=== PATIENT | female | born 1985 | race Caucasian/White ===

== ENCOUNTER 2017-09-18 20:41 | Emergency (ER) | payer MEDICAID ==
[2017-09-18 21:49] LABS: BASOPHIL % 0.5 % (0-2); PLATELET COUNT 181 x10^3mcL (130-400)
[2017-09-18 21:53] LABS: CALCIUM 8.8 mg/dL (8.5-10.1); CARBON DIOXIDE 26.3 mmol/L (21-32); CHLORIDE SERUM 105 mmol/L (98-107); CREATININE SERUM 0.6 mg/dL (0.6-1.0); GFR1 > 60 mL/min; GLUCOSE SERUM 94 mg/dL (74-106); POTASSIUM SERUM 3.7 mmol/L (3.5-5.1); SODIUM SERUM 137 mmol/L (136-145)
[2017-09-18 21:58] LABS: ALBUMIN 3.9 g/dL (3.4-5.0); ALKALINE PHOSPHATASE 47 U/L (46-116); ALT/SGPT 19 U/L (14-59); AST/SGOT 16 U/L (15-37); BILIRUBIN TOTAL 0.2 mg/dL (0.20-1.00); TOTAL PROTEIN, SERUM 7.6 g/dL (6.4-8.2)
[2017-09-19 02:30] VITALS: BP 108/63
== END 2017-09-19 02:30 | disposition home or self-care (01) ==
LOC: ED 20:41
PROVIDERS: Emergency Medicine
DX: R07.89 Other chest pain (principal)
CPT/HCPCS: 36415; 83880; J2270; Q0092